=== PATIENT | female | born 1980 | race Caucasian/White ===

== ENCOUNTER → 2016-08-29 | Outpatient (REF) | payer OTHER ==
[~2016-08-29] MED LIST: /MOM400 PO; ACET50TA PO; ANUS2.5C2 TOP; COLA50CA3 PO; DOCU10ELUD PO; IBUP100SUS PO; IBUP200C PO; MACR100C3 PO; PERCOCET OR; PRENTAB9 PO; ZOLP-187 PO
== END ==
LOC: M SFHCPLAZ 09:07
PROVIDERS: ATTEND Family Medicine
DX: M26.9 Dentofacial anomaly, unspecified (principal)

== ENCOUNTER → 2016-08-29 | Outpatient (REF) | payer OTHER ==
[2016-08-29 13:29] LABS: FREE T4 1.07 NG/DL (0.76-1.46)
== END ==
LOC: M LABDRAWP 11:35
PROVIDERS: ATTEND Family Medicine
DX: M26.9 Dentofacial anomaly, unspecified (principal); R63.5 Abnormal weight gain

== ENCOUNTER → 2016-10-25 | Outpatient (CLI) | payer OTHER ==
--- NOTE | 2016-10-25 12:22 | REP ---
MRI BRAIN WITHOUT AND WITH CONTRAST: 10/25/2016 CLINICAL HISTORY: Acromegaly, pituitary gigantism. No comparison study. TECHNIQUE: Sagittal T1, axial T2. After 8 ml of ProHance, dynamic coronal thin section T1 sequence performed and a sagittal T1 sequence also obtained. Lateral ventricles are symmetric and normal. There is no midline shift. Basal ganglia are intact. Third and fourth ventricles unremarkable. Cortical stripe preserved and no vascular territory infarct, hemorrhage, mass or mass effect. No white matter T2 or FLAIR hyperintense signal foci in either hemisphere. Brainstem and cerebellum grossly intact. 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 The seventh/eighth cranial nerve complexes, mastoids and the maxillary sinuses are clear. The other sinuses also unremarkable except for some minor scattered ethmoid sinus mucosal thickening. Orbits and contents grossly intact. Midline structures show corpus callosum, optic chiasm intact and the pituitary not enlarged. Infundibulum is midline. There is no cerebellar tonsillar ectopia. Ample subarachnoid space at the craniocervical junction. On the sagittal images, the pituitary has a maximum vertical diameter of 6 mm. No suprasellar cistern mass. Diffusion-weighted images and ADC mapping sequence show no evidence of acute ischemia. After dynamic scanning contrast injection, there is a subtle zone of apparent hypointense signal or nonenhancing area with a some linear appearance compared to more typical rounded nodule. This is a seen in the sagittal images as well. The superior margin of the pituitary is minimally concave. IMPRESSION: Equivocal evidence for a pituitary microadenoma, a subtle hypointense area centrally in the anterior pituitary near the infundibular insertion and below it, noted on coronal and sagittal image sets of dynamic scan. This may be a small pituitary microadenoma. No suprasellar cistern mass or other significant finding. Brain otherwise unremarkable. Signed by Brigido Haas MD 10/25/2016 05:02 P
== END ==
LOC: M RAD 09:15
PROVIDERS: ATTEND Physician Assistant Medical
DX: E22.0 Acromegaly and pituitary gigantism (principal)

== ENCOUNTER → 2017-10-30 | Outpatient (REF) | payer OTHER ==
[2017-10-30 13:28] LABS: CHLAMYDIA DNA AMPLIFICATION NEGATIVE (NEGATIVE); GC DNA AMPLIFICATION NEGATIVE (NEGATIVE)
== END ==
LOC: M SFHCWAGY 10:32
DX: Z12.4 Encounter for screening for malignant neoplasm of cervix (principal)
CPT/HCPCS: 87591

== ENCOUNTER → 2018-12-14 | Outpatient (REF) | payer OTHER ==
[~2018-12-14] MED LIST changes: -/MOM400 PO; -ACET50TA PO; -DOCU10ELUD PO; +DOCU5LIQ PO; +IBUP100S44 PO; -IBUP100SUS PO; +MAPA500T17 PO; +MILK10SU PO; +OXYC1TAB23 OR; -PERCOCET OR
[2018-12-14 22:08] LABS: CHLAMYDIA DNA AMPLIFICATION NEGATIVE (NEGATIVE); GC DNA AMPLIFICATION NEGATIVE (NEGATIVE)
== END ==
LOC: M SFHCWAGY 14:56
PROVIDERS: ATTEND Nurse Practitioner Family
DX: Z12.4 Encounter for screening for malignant neoplasm of cervix (principal)

== ENCOUNTER → 2019-01-20 | Outpatient (CLI) | payer OTHER ==
--- NOTE | 2019-01-20 15:05 | REP ---
LEFT FOOT, FOUR VIEWS: HISTORY: Lateral pain. There is no acute fracture or dislocation. The joint spaces are normal in appearance. IMPRESSION: There is no acute fracture or dislocation. Electronically Signed by Piotr George MD 01/20/2019 03:06 P
== END ==
LOC: M WUC 14:35
PROVIDERS: ATTEND Physician Assistant
DX: M79.672 Pain in left foot (principal)

== ENCOUNTER 2020-07-03 11:07 | Emergency (ER) | payer OTHER ==
[~2020-07-03] VITALS: Ht 188 cm; Wt 101.7 kg
[2020-07-03] MEDS ORDERED: DEBL1TAB (11:14)
[2020-07-03] MEDS ORDERED: KETOROLAC 60MG 2ML VIAL IM ONE (12:00)
[2020-07-03] MEDS ORDERED: ACETAMINOPHEN 500 MG TAB PO ONE (12:00)
--- NOTE | 2020-07-03 12:27 | REP ---
INDICATION: right lower musclular pain, no vertebral tenderness COMPARISON: None. TECHNIQUE: AP, lateral, bilateral oblique, and coned-down views of the lumbar spine. FINDINGS: Alignment and lordosis maintained. Vertebral bodies are intact. No acute fracture/compression injury or subluxation. No obvious spondylolysis or spondylolisthesis. Disc space narrowing at L3-4 noted. IMPRESSION: Focal mild/moderate disc space narrowing at L3-4. <Electronically signed by Davi oHlt > 07/03/20 [id number]
[2020-07-03 12:49] VITALS: BP 117/64
== END 2020-07-03 12:50 | disposition home or self-care (01) ==
LOC: M ED 11:07
DX: M54.5 Low back pain (principal); M62.9 Disorder of muscle, unspecified; M51.36 Other intervertebral disc degeneration, lumbar region; M41.9 Scoliosis, unspecified; F17.200 Nicotine dependence, unspecified, uncomplicated

== ENCOUNTER → 2022-09-20 | Outpatient (REF) | payer OTHER ==
[~2022-09-20] MED LIST changes: +DEBL1TAB
== END ==
LOC: M PLALAB 10:36
PROVIDERS: ATTEND Advanced Practice Midwife
DX: Z12.4 Encounter for screening for malignant neoplasm of cervix (principal)

== ENCOUNTER → 2022-11-29 | Outpatient (REF) | payer OTHER | LOC: M PLALAB 07:41 | PROVIDERS: ATTEND Advanced Practice Midwife | DX: R87.612 Low grade squamous intraepithelial lesion on cytologic smear of cervix (LGSIL) (principal); R87.810 Cervical high risk human papillomavirus (HPV) DNA test positive ==

== ENCOUNTER → 2023-08-08 | Outpatient (CLI) | payer OTHER ==
[2023-08-08 17:27] LABS: BASO # 0.1 10^3/uL (0.0-0.2); BASO % 1.1 % (0.0-1.0); EOS # 0.4 10^3/uL (0.0-0.5); EOS % 5.4 % (0.0-3.0); HEMOGLOBIN 12.8 g/dl (12.0-15.5); LYMPH # 2.9 10^3/uL (1.5-5.0); LYMPH % 39.7 % (24.0-44.0); MEAN CORPUSCULAR HEMOGLOBIN 31.7 pg (27.0-33.0); MEAN CORPUSCULAR HGB CONC 32.8 g/dl (32.0-36.5); MEAN CORPUSCULAR VOLUME 96.5 fl (80.0-96.0); MONO # 0.6 10^3/uL (0.0-0.8); MONO % 7.4 % (2.0-8.0); NEUTROPHILS # 3.4 10^3/uL (1.5-8.5); NEUTROPHILS % 46.3 % (36.0-66.0); PLATELET COUNT, AUTOMATED 204 10^3/uL (150-450); RED BLOOD COUNT 4.04 10^6/uL (4.00-5.40); WHITE BLOOD COUNT 7.4 10^3/uL (4.0-10.0)
[2023-08-08 17:49] LABS: THYROID STIMULATING HORMONE 1.314 uIU/ML (0.55-4.78)
[2023-08-08 17:50] LABS: ALBUMIN 3.6 G/DL (3.2-5.2); ALKALINE PHOSPHATASE 52 U/L (46-116); ALT/SGPT 37 U/L (7.0-40); AST/SGOT 21 U/L (<34); BILIRUBIN,TOTAL 0.3 MG/DL (0.3-1.2); BLOOD UREA NITROGEN 13 MG/DL (9-23); CALCIUM LEVEL 8.9 MG/DL (8.5-10.1); CARBON DIOXIDE LEVEL 28 MMOL/L (20-31); CHLORIDE LEVEL 109 MMOL/L (98-107); CREATININE FOR GFR 0.67 MG/DL (0.55-1.30); GLOMERULAR FILTRATION RATE > 60.0 (>58); GLUCOSE, FASTING 77 MG/DL (60-100); POTASSIUM SERUM 4.3 MMOL/L (3.5-5.1); SODIUM LEVEL 143 MMOL/L (136-145); TOTAL PROTEIN 6.3 G/DL (5.7-8.2); VITAMIN B12 LEVEL 334 PG/ML (211-911)
== END ==
LOC: M PLALAB 16:19
PROVIDERS: ATTEND Nurse Practitioner Family
DX: F41.9 Anxiety disorder, unspecified (principal); G43.919 Migraine, unspecified, intractable, without status migrainosus

== ENCOUNTER 2023-09-23 13:49 | Emergency (ER) | payer BC, OTHER ==
[~2023-09-23] VITALS: Ht 188 cm; Wt 101.5 kg
[2023-09-23] MEDS: KETOROLAC 30 MG/ML 1ML VIAL IV ONE (14:52)
[2023-09-23] MEDS: NS 1,000 ML IV ONE (14:52)
[2023-09-23 14:57] LABS: BASO # 0.1 10^3/uL (0.0-0.2); EOS # 0.3 10^3/uL (0.0-0.5); EOS % 4.5 % (0.0-3.0); HEMATOCRIT 39.5 % (36.0-47.0); HEMOGLOBIN 13.2 g/dl (12.0-15.5); LYMPH # 2.4 10^3/uL (1.5-5.0); LYMPH % 38.2 % (24.0-44.0); MEAN CORPUSCULAR HEMOGLOBIN 31.8 pg (27.0-33.0); MEAN CORPUSCULAR HGB CONC 33.4 g/dl (32.0-36.5); MEAN CORPUSCULAR VOLUME 95.2 fl (80.0-96.0); MONO # 0.5 10^3/uL (0.0-0.8); MONO % 7.4 % (2.0-8.0); NEUTROPHILS # 3.1 10^3/uL (1.5-8.5); NEUTROPHILS % 48.7 % (36.0-66.0); PLATELET COUNT, AUTOMATED 202 10^3/uL (150-450); RED BLOOD COUNT 4.15 10^6/uL (4.00-5.40); WHITE BLOOD COUNT 6.3 10^3/uL (4.0-10.0)
[2023-09-23] MEDS ORDERED: FLUO40CA (15:09)
[2023-09-23] MEDS ORDERED: PROP10TA56 (15:09)
[2023-09-23 15:31] LABS: RSV AMPLIFICATION NEGATIVE (NEGATIVE)
[2023-09-23 15:32] LABS: ALBUMIN 3.8 G/DL (3.2-5.2); ALKALINE PHOSPHATASE 53 U/L (46-116); ALT/SGPT 21 U/L (7.0-40); AST/SGOT 13 U/L (<34); BILIRUBIN,DIRECT 0.2 MG/DL (<0.4); BILIRUBIN,TOTAL 0.5 MG/DL (0.3-1.2); BLOOD UREA NITROGEN 7 MG/DL (9-23); CALCIUM LEVEL 8.6 MG/DL (8.5-10.1); CARBON DIOXIDE LEVEL 27 MMOL/L (20-31); CHLORIDE LEVEL 109 MMOL/L (98-107); CK-MB VALUE MASS < 1.0 NG/ML (<3.6); CPK CREATINE PHOSPHOKINASE 74 U/L (34-145); CREATININE FOR GFR 0.59 MG/DL (0.55-1.30); GLOMERULAR FILTRATION RATE > 60.0 (>58); GLUCOSE, FASTING 151 MG/DL (60-100); MB/CK RELATIVE INDEX 1.35 (< OR =4); POTASSIUM SERUM 3.5 MMOL/L (3.5-5.1); SODIUM LEVEL 140 MMOL/L (136-145); TOTAL PROTEIN 6.2 G/DL (5.7-8.2)
[2023-09-23 15:34] LABS: FREE T4 0.93 NG/DL (0.89-1.76); THYROID STIMULATING HORMONE 1.202 uIU/ML (0.55-4.78)
[2023-09-23 15:54] LABS: HCG, SERUM QUALITATIVE NEGATIVE (NEGATIVE)
[2023-09-23] MEDS ORDERED: PROHANCE 279.3MG/ML 5ML VIAL As Ordered ONE (16:02)
[2023-09-23] MEDS: MORPHINE 4 MG/ML 1ML VIAL IV ONE (17:59)
[2023-09-23] MEDS ORDERED: KETO10TAB PO (20:22)
[2023-09-23] MEDS: SUMAtriptan SUCCINATE 6MG/0.5ML VIAL SC ONE (20:27)
[2023-09-23 20:30] VITALS: BP 126/62; TEMP 98.1; O2SAT 97
== END 2023-09-23 20:37 | disposition home or self-care (01) ==
LOC: M ED 13:49
DX: G43.909 Migraine, unspecified, not intractable, without status migrainosus (principal); D35.2 Benign neoplasm of pituitary gland; F17.200 Nicotine dependence, unspecified, uncomplicated; Z79.1 Long term (current) use of non-steroidal anti-inflammatories (NSAID); Z79.899 Other long term (current) drug therapy
CPT/HCPCS: 70450; 70544; 70553; 71045; 80048; 80076; 82550; 82553; 84439; 84443; 84484; 84703; 85025; 85730; 87631; 93005; 93041; 94760; 96361; 96372; 96374; 99285; A9576; J1885; J3030

== ENCOUNTER → 2023-12-26 | Outpatient (CLI) | payer BC ==
[~2023-12-26] MED LIST changes: +FLUO40CA; +KETO10TAB PO; +PROP10TA56
[2023-12-26 07:51] LABS: BLOOD UREA NITROGEN 10 MG/DL (9-23); CALCIUM LEVEL 8.9 MG/DL (8.5-10.1); CARBON DIOXIDE LEVEL 27 MMOL/L (20-31); CHLORIDE LEVEL 109 MMOL/L (98-107); CREATININE FOR GFR 0.63 MG/DL (0.55-1.30); GLOMERULAR FILTRATION RATE > 60.0 (>58); GLUCOSE, FASTING 89 MG/DL (60-100); POTASSIUM SERUM 4.1 MMOL/L (3.5-5.1); SODIUM LEVEL 138 MMOL/L (136-145)
[2023-12-26 07:53] LABS: FOLLICLE STIMULATING HORMONE 3.3 mIU/ML; FREE T4 0.91 NG/DL (0.89-1.76); LUTEINIZING HORMONE 6.5 mIU/ML; THYROID STIMULATING HORMONE 1.294 uIU/ML (0.55-4.78)
[2023-12-26 07:54] LABS: CORTISOL AM 14.4 UG/DL (4.3-22.4); PROLACTIN 5.12 NG/ML
[2023-12-26 17:12] LABS: OSMOLALITY URINE 960 MOSM/KG (50-1400)
[2023-12-26 17:24] LABS: SODIUM,RANDOM URINE 88 MMOL/L
[2023-12-27 23:07] LABS: ADRENOCORTICOTROPHIC HORMONE 16.6 pg/mL (7.2-63.3)
== END ==
LOC: M LAB 06:59
PROVIDERS: ATTEND Nurse Practitioner Family
DX: D35.2 Benign neoplasm of pituitary gland (principal)

== ENCOUNTER → 2024-07-01 | Outpatient (REF) | payer BC ==
[2024-07-06 14:07] LABS: HPV APTIMA Not Detected (Not Detected)
== END ==
LOC: M PLALAB 16:28
PROVIDERS: ATTEND Advanced Practice Midwife
DX: Z01.419 Encounter for gynecological examination (general) (routine) without abnormal findings (principal); Z11.51 Encounter for screening for human papillomavirus (HPV); R89.6 Abnormal cytological findings in specimens from other organs, systems and tissues

== ENCOUNTER → 2024-07-01 | Outpatient (CLI) | payer BC | LOC: M WHC 14:48 | PROVIDERS: ATTEND Advanced Practice Midwife | DX: Z12.31 Encounter for screening mammogram for malignant neoplasm of breast (principal) ==

== ENCOUNTER → 2024-10-18 | Outpatient (REF) | payer BC | LOC: M SFHCDERM 17:55 | PROVIDERS: ATTEND Physician Assistant | DX: D48.5 Neoplasm of uncertain behavior of skin (principal) ==

== ENCOUNTER → 2024-12-16 | Outpatient (REF) | payer BC ==
[2024-12-19 08:32] LABS: HPV APTIMA Detected (Not Detected)
== END ==
LOC: M PLALAB 16:18
PROVIDERS: ATTEND Advanced Practice Midwife
DX: Z12.4 Encounter for screening for malignant neoplasm of cervix (principal); B37.9 Candidiasis, unspecified; Z87.42 Personal history of other diseases of the female genital tract